=== PATIENT | male | born 1995 | race African-American/Black ===

== ENCOUNTER 2017-03-17 18:52 | Emergency (ER) | payer OTHER ==
[~2017-03-17] VITALS: Ht 182.9 cm; Wt 87.1 kg
[2017-03-17 19:22] VITALS: BP 117/75; TEMP 98.8
== END 2017-03-17 21:40 | disposition home or self-care (01) ==
LOC: ED 18:52
DX: M79.1 Myalgia (principal)
CPT/HCPCS: 99281

== ENCOUNTER 2020-10-31 12:23 | Outpatient (CLI) | payer OTHER ==
[2020-10-31 13:01] LABS: POTASSIUM 3.9 mmol/L (3.6-5.2)
== END 2020-10-31 21:00 | disposition home or self-care (01) ==
LOC: LABW 12:23
PROVIDERS: ATTEND Otolaryngology
DX: R43.0 Anosmia (principal)
CPT/HCPCS: 36415; 80053; 82306; 82607; 83735; 84207; 84630

== ENCOUNTER 2022-12-28 15:27 | Emergency (ER) | payer BC ==
[~2022-12-28] VITALS: Ht 180.3 cm; Wt 95.3 kg
[2022-12-28 15:44] VITALS: BP 139/60; TEMP 98
== END 2022-12-28 19:04 | disposition home or self-care (01) ==
LOC: ED 15:27
PROC: 2W3JX1Z Immobilization of Right Finger using Splint (ICD-10-PCS; principal; 2022-12-28)
DX: S62.642A Nondisplaced fracture of proximal phalanx of right middle finger, initial encounter for closed fracture (principal); W27.8XXA Contact with other nonpowered hand tool, initial encounter; Y92.89 Other specified places as the place of occurrence of the external cause
CPT/HCPCS: 99283